=== PATIENT | male | born 1995 | race Two or more races ===

== ENCOUNTER 2021-05-06 17:33 | Emergency (ER) | payer SELFPAY ==
[~2021-05-06] VITALS: Ht 185.4 cm; Wt 83.9 kg
--- NOTE | 2021-05-06 20:46 | EKG ---
[facility] [address] [facility] [place], [place] [address] Signed Sinus tachycardia Right axis deviation Abnormal ECG No previous ECGs available Confirmed by AUDREY MICHAEL MD ([id number]) on 05/06/2021 8:45:46 PM Electronically Signed By: AUDREY MICHAEL MD 05/06/212045 PATIENT NAME: COURTNEY CANNON Electrocardiogram DATE OF : [birth year] PHYSICIAN: AUDREY MICHAEL MD REPORT #: [id number] REPORT IS CONFIDENTIAL AND NOT TO BE RELEASED WITHOUT AUTHORIZATION
== END 2021-05-06 23:19 | disposition home or self-care (01) ==
LOC: ED 17:33
DX: T40.411A Poisoning by fentanyl or fentanyl analogs, accidental (unintentional), initial encounter (principal); F17.200 Nicotine dependence, unspecified, uncomplicated; Z85.028 Personal history of other malignant neoplasm of stomach; Z88.0 Allergy status to penicillin
CPT/HCPCS: 80053; 81001; 84443; 85025; 93005; 93010; 96374; 99284-25; G0480; J2060; J7030; J7121

== ENCOUNTER 2021-05-14 16:00 | Emergency (ER) | payer SELFPAY ==
[~2021-05-14] VITALS: Ht 185.4 cm; Wt 83.9 kg
--- OUTSIDE RECORDS SUMMARY | 2021-05-14 16:06 | XMS ---
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 Eduar has no Care Guidelines for this patient. [facility]12 MO.) [facility] NOTE: Visits indicate total known visits. [facility] [place] [facility] COMPLAINT: - ABD PAIN, VOMITING 05/06/2021 17:34 [facility] [place] TYPE: Emergency COMPLAINT: - POSS OVERDOSE DIAGNOSES: - Allergy status to penicillin - Poisoning by fentanyl or fentanyl analogs, accidental (unintentional), initial encounter - Nicotine dependence, unspecified, uncomplicated - Personal history of other malignant neoplasm of stomach INPATIENT VISIT TRACKING (12 MO.) No inpatient visits to display in this time frame [email or web address]
--- NOTE | 2021-05-14 20:13 | EKG ---
[facility] [address] [facility] [place], [place] [address] Signed Sinus tachycardia Right axis deviation Abnormal ECG When compared with ECG of 06-MAY-2021 17:56, No significant change was found Confirmed by JOE ZAYAS DO ([id number]) on 05/14/2021 8:13:44 PM Electronically Signed By: JOE ZAYAS DO 05/14/212012 PATIENT NAME: COURTNEY CANNON Electrocardiogram DATE OF : [birth year] PHYSICIAN: JOE ZAYAS DO REPORT #: [id number] REPORT IS CONFIDENTIAL AND NOT TO BE RELEASED WITHOUT AUTHORIZATION
== END 2021-05-14 19:53 | disposition home or self-care (01) ==
LOC: ED 16:00
DX: T43.622A Poisoning by amphetamines, intentional self-harm, initial encounter (principal); T40.412A Poisoning by fentanyl or fentanyl analogs, intentional self-harm, initial encounter; F17.200 Nicotine dependence, unspecified, uncomplicated; Z88.0 Allergy status to penicillin
CPT/HCPCS: 80053; 81001; 84443; 85025; 93005; 93010; 96374; 96375; 96376; 99285-25; G0480; J2060; J2405; J7030

== ENCOUNTER 2021-10-04 03:35 | Emergency (ER) | payer SELFPAY ==
[~2021-10-04] VITALS: Ht 185.4 cm; Wt 83.9 kg
== END 2021-10-04 05:30 | disposition home or self-care (01) ==
LOC: ED 03:35
DX: T40.411A Poisoning by fentanyl or fentanyl analogs, accidental (unintentional), initial encounter (principal); F17.200 Nicotine dependence, unspecified, uncomplicated; Z88.0 Allergy status to penicillin
CPT/HCPCS: 99284; J7030

== ENCOUNTER 2023-05-02 22:35 | Emergency (ER) | payer OTHER ==
[~2023-05-02] VITALS: Ht 185.4 cm; Wt 83.9 kg
[2023-05-03 02:00] VITALS: BP 128/73
--- NOTE | 2023-05-03 13:19 | EKG ---
[facility] [address] [facility] [place], [place] [address] Signed Sinus tachycardia Rightward axis Borderline ECG When compared with ECG of 02-APR-2022 19:56, No significant change was found Confirmed by TALA MUSA MD ([id number]) on 05/03/2023 1:19:04 PM Electronically Signed By: TALA MUSA 05/03/23 1319 PATIENT NAME: COURTNEY CANNON Electrocardiogram DATE OF : [birth year] PHYSICIAN: TALA MUSA REPORT #: [id number] REPORT IS CONFIDENTIAL AND NOT TO BE RELEASED WITHOUT AUTHORIZATION
== END 2023-05-03 02:00 | disposition home or self-care (01) ==
LOC: ED 22:35
DX: R10.12 Left upper quadrant pain (principal); T43.655A Adverse effect of methamphetamines, initial encounter; F17.200 Nicotine dependence, unspecified, uncomplicated; Z88.0 Allergy status to penicillin
CPT/HCPCS: 36415; 71045; 74177; 80053; 83605; 83690; 83735; 84484; 85025; 93005; 93010; C9113; G0480; J2060; J2310; J7121

== ENCOUNTER 2023-09-03 08:30 | Emergency (ER) | payer OTHER, MEDICAID ==
[2023-09-03 08:50] LABS: BASOPHILS 0.3 % (0-2); EOSINOPHILS 0.1 % (0-6); HEMATOCRIT 46.5 % (35.0-50.0); HEMOGLOBIN 15.6 g/dL (12.0-18.0); LYMPHOCYTES 19.5 % (24-44); MCH 27.7 (27-36); MCHC 33.5 g/dl (30-36); MCV 82.5 fl (81-99); MONOCYTES 6.6 % (0-12); NEUTROPHILS 73.5 % (39-80); PLATELET COUNT 263 K/uL (140-440); RBC 5.63 M/ul (4.3-5.7); RDW 14.3 (10.5-15.0)
[2023-09-03 09:11] LABS: ALBUMIN 4.1 g/dL (3.4-5.0); ALBUMIN/GLOBULIN RATIO 1.14 (1.1-2.4); ALCOHOL, MEDICAL <3 ng/dL (<3); ALKALINE PHOSPHATASE 86 U/L (46-116); ALT (SGPT) 47 U/L (14-59); ANION GAP 16.9 (7-21); AST (SGOT) 22 U/L (15-37); BILIRUBIN, TOTAL 0.4 ng/dL (0.2-1.0); BUN/CREATININE RATIO 9.58 (6.0-28.6); CALCIUM 9.4 mg/dL (8.5-10.1); CARBON DIOXIDE 24 mmol/L (21-32); CHLORIDE 103 mmol/L (98-107); CREATININE, SERUM 1.46 mg/dL (0.70-1.30); GLOMERULAR FILTRATION RATE,EST 68 mL/min (>60); POTASSIUM 3.9 mmol/L (3.5-5.1); PROTEIN, TOTAL 7.7 g/dL (6.4-8.2); UREA NITROGEN 14 mg/dL (7-18)
[2023-09-03 09:36] LABS: ABO A; ANTIBODY SCREEN NEGATIVE; RH POSITIVE
[2023-09-03 09:55] LABS: BILIRUBIN, URINE NEGATIVE (negative); BLOOD/HGB, URINE NEGATIVE (Negative); KETONE, URINE NEGATIVE (Negative); LEUK ESTERASE, URINE NEGATIVE (negative); NITRITE, URINE NEGATIVE (negative)
[2023-09-03 10:28] LABS: AMPHETAMINES, URINE POSITIVE (NEGATIVE); BARBITURATES, URINE NEGATIVE (NEGATIVE); BENZODIAZEPINE, URINE NEGATIVE (NEGATIVE); BUPRENORPHINE, URINE NEGATIVE (NEGATIVE); CANNABINOID, URINE NEGATIVE (NEGATIVE); COCAINE, URINE NEGATIVE (NEGATIVE); ECSTASY, URINE POSITIVE (NEGATIVE); FENTANYL, URINE NEGATIVE (NEGATIVE); METHADONE, URINE NEGATIVE (NEGATIVE); OPIATES, URINE NEGATIVE (NEGATIVE); OXYCODONE, URINE NEGATIVE (NEGATIVE); PHENCYCLIDINE, URINE NEGATIVE (NEGATIVE)
[2023-09-03 13:31] VITALS: BP 128/74
== END 2023-09-03 13:20 | disposition home or self-care (01) ==
LOC: ED 08:30 → EDBD 08:31 → ED 08:31
PROVIDERS: Emergency Medicine
DX: T40.411A Poisoning by fentanyl or fentanyl analogs, accidental (unintentional), initial encounter (principal); V47.5XXA Car driver injured in collision with fixed or stationary object in traffic accident, initial encounter
CPT/HCPCS: 36415; 70450; 71045; 71260; 72125; 74177; 80053; 80307; 81003; 85025; 86850; 86900; 86901; 99284-25; G0480; J7121; Q9967